=== PATIENT | male | born 1935 | race Caucasian/White ===

== ENCOUNTER 2017-01-10 10:53 | Outpatient (CLI) | payer MEDICARE, OTHER ==
[2013-06-13 09:29] VITALS: BP 129/67
[2017-01-10 22:00] LABS: TOTAL PROTEIN 7.5 g/dL (6.0-8.5)
== END 2017-01-10 10:54 ==
LOC: LAB 10:53
PROVIDERS: ATTEND Family Medicine
DX: E78.2 Mixed hyperlipidemia (principal)
CPT/HCPCS: 36415; 80053; 80061

== ENCOUNTER 2019-03-07 14:40 | Outpatient (CLI) | payer MEDICARE, OTHER ==
[2013-06-13 09:29] VITALS: BP 129/67
[2019-03-07 16:53] LABS: eGFR (Non-African) > 60
[2019-03-07 16:54] LABS: BASOPHILS % 2.2 % (0.0-1.5); EOSINOPHILS % 3.2 % (0.0-6.8); MEAN CORPUSCULAR HEMOGLOBIN 33.1 pg (28.0-34.0); MONOCYTES % 7.1 % (0.0-11.0)
[2019-03-07 16:55] LABS: NEUTROPHILS # 6.4 # k/uL (1.4-7.7)
== END 2019-03-07 14:45 ==
LOC: LABRHC 14:40
PROVIDERS: ATTEND Family Medicine
DX: I10 Essential (primary) hypertension (principal)
CPT/HCPCS: 80053; 85025